=== PATIENT | male | born 1955 | race Caucasian/White ===

== ENCOUNTER → 2018-11-06 | Outpatient (CLI) | payer MEDICARE ==
[~2018-11-06] MED LIST: FOLI-17 PO; MAGN400T26 PO; Multivit.w/Iron, Minerals PO; SUCR1ORA5 PO
== END | disposition home or self-care (01) ==
LOC: CFH 08:07
PROVIDERS: ATTEND Psychiatry & Neurology Neurology
DX: I65.23 Occlusion and stenosis of bilateral carotid arteries (principal); I25.10 Atherosclerotic heart disease of native coronary artery without angina pectoris; G31.9 Degenerative disease of nervous system, unspecified; M47.812 Spondylosis without myelopathy or radiculopathy, cervical region; M48.02 Spinal stenosis, cervical region; I67.89 Other cerebrovascular disease; I63.9 Cerebral infarction, unspecified; Z87.891 Personal history of nicotine dependence
CPT/HCPCS: 70551; 72050; 93880